=== PATIENT | female | born 1985 | race Caucasian/White ===

== ENCOUNTER 2016-05-30 23:55 | Inpatient (IN) | payer OTHER ==
[~2016-05-30 23:55] MED LIST: Z.0.NO CURRENT MEDS
[2016-05-31] VITALS (89 sets, daily range): BP systolic 81–133; BP diastolic 48–92; PULSE 59–115; RESP 16–19; TEMP 97.7–98.7; O2SAT 97
[2016-05-31] MEDS ORDERED: LACTATED RINGER'S 1000 ML INJ 1,000 ML IV SCH (00:14)
[2016-05-31] MEDS ORDERED: LACTATED RINGER'S 1000 ML INJ 1,000 ML IV PRN (00:14)
[2016-05-31] MEDS ORDERED: LIDOCAINE HCL 1% 50 ML VIAL INFIL PRN (00:15)
[2016-05-31] MEDS ORDERED: SODIUM CHLORID 0.9% 500 ML INJ 500 ML IV PRN (00:15)
[2016-05-31] MEDS ORDERED: OXYTOCIN 30 UNITS-500ML PREMIX 500 ML IV ONE (00:15)
[2016-05-31] MEDS ORDERED: CITRIC ACID-SODIUM CITRATE LIQ 30 ML UDC PO SCH (00:15)
[2016-05-31] MEDS ORDERED: MINERAL OIL 10 ML VIAL TOPICAL PRN (00:15)
[2016-05-31] MEDS ORDERED: LIDOCAINE HCL 1% 50 ML VIAL I-DERMAL PRN (00:15)
[2016-05-31] MEDS ORDERED: SODIUM CHLOR 0.9% 1000 ML INJ 1,000 ML IV PRN (00:34)
--- NOTE | 2016-05-31 00:38 | HHI.HP ---
HPI Chief Complaint labor and SROM Date Seen: May 31, 2016 Time Seen: 00:15 Travel History International Travel<30 Days: No Contact w/Intl Traveler<30Days: No Known Affected Area: No History of Present Illness HPI 30 yo 22:30 SROM and contractions Q4 min History Past Medical History Medical History: Denies Significant Hx Past Surgical History Surgical History: No Previous Surgery Family History Family History: Negative Social History Alcohol Use: No Tobacco Use: No Substance Abuse: No Allergies-Medications (Allergen,Severity, Reaction): Coded Allergies: No Known Allergies (Verified , 12/13/09) Home Meds Reported Medications Miscellaneous (No Current Meds) [facility] Review of Systems Except as stated in HPI: all other systems reviewed are Neg Physical Exam Narrative GENERAL: Well-nourished, well-developed patient. SKIN: Warm and dry. HEAD: Normocephalic and atraumatic. EYES: No scleral icterus. No injection or drainage. ENT: No nasal drainage noted. Mucous membranes pink. Airway patent. NECK: Supple, trachea midline. No JVD. CARDIOVASCULAR: Regular rate and rhythm without murmurs, gallops, or rubs. RESPIRATORY: Breath sounds equal bilaterally. No accessory muscle use. BREASTS: Bilateral exam showed no masses , no retractions, no nipple discharge. ABDOMEN/GI: Abdomen soft, non-tender, bowel sounds present, no rebound, no guarding Gravid to [-] weeks size Fundal Height: [-] GENITOURINARY: External Genitalia: intact and normal in appearance BUS glands: [-] Cervix: [-] Dilatation: [-] Effacement: [-] Station: [-] Presentation: [-] Membranes: [intact or ruptured] Uterine Contractions: [-] FHT's: Category: [-] Baseline: [-] Reactive: [-] Variability: [-] Decels: [-] EXTREMITIES: No cyanosis or edema. BACK: Nontender without obvious deformity. No CVA tenderness. NEUROLOGICAL: Awake and alert. Motor and sensory grossly within normal limits. Five out of 5 muscle strength in all muscle groups. Normal speech. Data Data Vital Signs Reviewed: Yes Orders Ob (2e) Additional Admit Info (05/31/16 00:20) Admit To Inpatient (4/13/17 ) Code Status (05/31/16 00:14) Vital Signs (Adult) .Per protocol (05/31/16 00:14) Heart (05/31/16 00:14) Amnioinfusion (05/31/16 00:14) Urinary Catheter Management .ONCE (05/31/16 00:14) Diet Liquid (05/31/16 Breakfast) Lactated Ringer's 1000 Ml Inj (Lr 1000 M (05/31/16 00:14) Lactated Ringer's 1000 Ml Inj (Lr 1000 M (05/31/16 00:14) Sodium Chlorid 0.9% 500 Ml Inj (Ns 500 M (05/31/16 00:15) Sodium Chlor 0.9% 1000 Ml Inj (Ns 1000 M (05/31/16 00:34) Lidocaine 1% Inj (50 Ml) (Xylocaine 1% I (05/31/16 00:15) Citric Acid-Sodium Citrate Liq (Bicitra (05/31/16 00:15) Fentanyl Inj (Fentanyl Inj) (05/31/16 00:15) Fentanyl Inj (Fentanyl Inj) (05/31/16 00:15) Complete Blood Count With Diff (05/31/16 00:14) Hold Clot (05/31/16 00:14) Abo/Rh Blood Type (05/31/16 00:14) Urinalysis - C+S If Indicated (05/31/16 00:14) Resp Oxygen Non Rebreathe Mask (05/31/16 ) ^ Epidural / Intrathecal Infus (05/31/16 00:14) Oxytocin 30 Units-500ml Premix (Pitocin (05/31/16 00:15) Lidocaine 1% Inj (50 Ml) (Xylocaine 1% I (05/31/16 00:15) Light Mineral Oil (Muri-Lube Oil) (05/31/16 00:15) Inpatient Certification (05/31/16 ) Assessment/Plan Problem List: (1) 38 weeks gestation of Assessment and Plan active labor with ruptured membranes Marcos Patel MD May 31, 2016 00:38
[2016-05-31 01:10] LABS: BLOOD, URINE SMALL (NEG); COMMENT (UR) CULT NOT INDICATED; CULTURE IF INDICATED CULT NOT INDICATED; GLUCOSE,URINE NEG (NEG); KETONE, URINE NEG (NEG); MUCUS URINE FEW /lpf (OCC); NITRITE,URINE NEG (NEG); SQUAMOUS EPITHELIAL CELL URINE 1 /hpf (0-5); URINE COLOR YELLOW (YELLW/STRAW)
[2016-05-31 01:21] LABS: AUTOMATED NEUTROPHIL # 9.2 TH/MM3 (1.8-7.7); BASOPHIL # 0.1 TH/MM3 (0-0.2); BASOPHIL % 0.5 % (0.0-2.0); EOSINOPHIL % 0.4 % (0.0-4.0); HEMO FLAGS DIFF FINAL; LYMPH % 15.3 % (9.0-44.0); LYMPHOCYTE # 1.8 TH/MM3 (1.0-4.8); MEAN CORPUSCULAR HEMOGLOBIN 28.1 PG (27.0-34.0); MEAN CORPUSCULAR HGB CONC 34.7 % (32.0-36.0); NEUT % 77.8 % (16.0-70.0); PLATELET COUNT 215 TH/MM3 (150-450); RED BLOOD COUNT 4.44 MIL/MM3 (4.00-5.30); RED CELL DISTRIBUTION WIDTH 14.2 % (11.6-17.2); WHITE BLOOD COUNT 11.8 TH/MM3 (4.0-11.0)
[2016-05-31] MEDS ORDERED: ONDANSETRON HCL 4 MG/2 ML VIAL ONE (01:35)
[2016-05-31] MEDS ORDERED: fentaNYL 2MCG-BUPIV 0.125% INJ 100 ML ONE ×2 (01:44→08:08)
[2016-05-31] MEDS ORDERED: OXYTOCIN 30 UNITS-500ML PREMIX 500 ML IV SCH (04:30)
[2016-05-31] MEDS ORDERED: ePHEDrine/NS 25 MG/5 ML SYR IV PRN (09:00)
[2016-05-31] MEDS ORDERED: fentaNYL 2MCG-BUPIV 0.125% 100 ML EPIDURAL SCH (09:00)
[2016-05-31] MEDS ORDERED: NO SYSTEM NARCOTICS PRN (09:00)
[2016-05-31] MEDS ORDERED: DO NOT ADMINISTER ANTICOAGULANTS PRN (09:00)
[2016-05-31] MEDS ORDERED: ONDANSETRON ODT 4 MG TAB PO PRN (09:15)
[2016-05-31] MEDS ORDERED: SODIUM CHLORIDE 0.9% FLUSH 10 ML FLUSH IV FLUSH PRN (09:15)
[2016-05-31] MEDS ORDERED: oxyCODONE/ACETAMINOPHEN 5 MG/325 MG TAB PO PRN ×2 (09:15)
[2016-05-31] MEDS ORDERED: WITCH HAZEL 50%/GLYCERIN 12.5% 40 PAD JAR TOPICAL PRN (09:15)
[2016-05-31] MEDS ORDERED: ZOLPIDEM TARTRATE 5 MG TAB PO PRN (09:15)
[2016-05-31] MEDS ORDERED: ALUMINUM/MAGNESIUM/SIMETH 30 ML CUP PO PRN (09:15)
[2016-05-31] MEDS ORDERED: BENZOCAINE 20% TOPICAL SPRAY 60 ML CAN TOPICAL PRN (09:15)
[2016-05-31] MEDS ORDERED: ACETAMINOPHEN 325 MG TAB PO PRN (09:15)
[2016-05-31] MEDS ORDERED: DOCUSATE SODIUM 50 MG/SENNA 8.6 MG TAB PO PRN (09:15)
--- NOTE | 2016-05-31 09:19 | PD.OB.DELI ---
Delivery Date: May 31, 2016 Anesthesia: Epidural Episiotomy: Midline Vaginal Delivery: Normal, Spontaneous Presentation: Occiput anterior, Vertex Nuchal Cord: x1 Delayed cord clamping (45 sec): Yes Infant: Male, Single One Minute : 7 Five Minute : 8 Weight: 7-2 Placenta: Spontaneous delivery, Intact, 3 vessel cord Laceration: Episiotomy, 2 deg Repair: Chromic interrupted, Chromic running Zonia Bowman MD May 31, 2016 09:19
[2016-05-31] MEDS ORDERED: MEASLES, MUMPS, RUBELLA VACCINE 0.5 ML VIAL SQ ONE (16:00)
[2016-05-31] MEDS ORDERED: DIPHTH/TETANUS/ACEL PERTUSSIS (BOOSTER) 0.5 ML VIAL/PFS IM ONE (16:00)
[2016-05-31] MEDS: IBUPROFEN 600 MG TAB PO PRN (17:17)
[2016-05-31] MEDS ORDERED: SODIUM CHLORIDE 0.9% FLUSH 10 ML FLUSH IV FLUSH SCH (21:00)
[2016-06-01 08:00] VITALS: BP 107/68; PULSE 65; RESP 17; TEMP 97.8
[2016-06-01] MEDS: IBUPROFEN 600 MG TAB PO PRN ×2 (09:35→22:54)
--- NOTE | 2016-06-01 12:35 | HHI.OB ---
Subjective Post Day: 1 Remarks Pt doing well Objective Vitals/I&O Vital Signs Date Time Temp Pulse Resp B/P Pulse Ox O2 Delivery O2 Flow Rate FiO2 06/01/16 11:16 18 06/01/16 08:00 107/68 06/01/16 08:00 97.8 65 17 05/31/16 21:00 97.8 86 18 113/72 05/31/16 19:48 97.8 86 16 113/72 97 05/31/16 16:55 97.7 73 18 113/69 Objective Remarks GENERAL: Well-nourished, well-developed patient. CARDIOVASCULAR: Regular rate and rhythm without murmurs, gallops, or rubs. RESPIRATORY: Breath sounds equal bilaterally. No accessory muscle use. ABDOMEN/GI: Abdomen soft, non-tender. Fundus: Firm, non-tender at umbilicus. GENITOURINARY: Light to moderate bleeding. EXTREMITIES: No cyanosis or edema, non-tender, without signs of DVT. Medications and IVs Current Medications Medications (Trade) Dose Ordered Sig/Justine Route Start Time Stop Time Status Last Admin Lactated Ringer's 1,000 ml @ 125 mls/hr Q8H IV 05/31/16 00:14 Lactated Ringer's 1,000 ml @ 3,000 mls/hr Q20M PRN IV 05/31/16 00:14 Sodium Chloride 500 ml @ 1,000 mls/hr ONCE PRN IV 05/31/16 00:15 (NS 1000 ml Inj) 1,000 ml @ 100 mls/hr Q10H PRN IV 05/31/16 00:34 (fentaNYL INJ) 50 mcg Q1H PRN IV PUSH 05/31/16 00:15 (fentaNYL INJ) 100 mcg Q1H PRN IV PUSH 05/31/16 00:15 Mineral Oil 10 ml 10 ml UNSCH PRN TOPICAL 05/31/16 00:15 Oxytocin 500 ml @ 0 mls/hr TITRATE IV 05/31/16 04:30 05/31/16 08:29 (fentaNYL 2MCG-BUPIV 0.125% INJ) 100 ml @ 0 mls/hr TITRATE EPIDURAL 05/31/16 09:00 (NS Flush) 2 ml BID IV FLUSH 05/31/16 21:00 (NS Flush) 2 ml UNSCH PRN IV FLUSH 05/31/16 09:15 (Tylenol) 650 mg Q4H PRN PO 05/31/16 09:15 (Motrin) 600 mg Q6H PRN PO 05/31/16 09:15 06/01/16 09:35 (Percocet 5-325 Mg) 1 tab Q4H PRN PO 05/31/16 09:15 (Percocet 5-325 Mg) 2 tab Q4H PRN PO 05/31/16 09:15 (Americaine 20% Top Spr) 1 spray Q4H PRN TOPICAL 05/31/16 09:15 (Tucks Pads) 1 applic QID PRN TOPICAL 05/31/16 09:15 (Sylvia-Colace) 2 tab Q12H PRN PO 05/31/16 09:15 (Ambien) 5 mg HS PRN PO 05/31/16 09:15 (Mag-Al Plus Susp Liq) 15 ml Q8H PRN PO 05/31/16 09:15 (Zofran Odt) 4 mg Q6H PRN PO 05/31/16 09:15 Assessment/Plan Problem List: (1) 38 weeks gestation of Assessment and Plan active labor with ruptured membranes Discharge Planning PPD #1 s/p doing well, plan for discharge tomorrow Zonia Bowman MD Jun 01, 2016 12:35
[2016-06-01 20:00] VITALS: BP 121/77; PULSE 68; RESP 18; TEMP 98
[2016-06-02 08:20] VITALS: BP 120/73; PULSE 62; RESP 20; TEMP 98.1
[2016-06-02] MEDS: IBUPROFEN 600 MG TAB PO PRN ×2 (08:20→14:39)
[2016-06-02] MEDS ORDERED: OXYC1TAB63 PO (11:09)
--- NOTE | 2016-06-02 11:10 | HHI.DCPOC ---
Discharge Care Plan Your Health Problems Are: Vaginal delivery Report Symptoms to Your Doctor -Temperate above 100.5 degrees -Redness, of incision or excessive or foul smelling drainage -Unusual pain or calf pain -Increased vaginal bleeding -Painful or difficulty urinating -Feelings of extreme sadness or anxiety after 2 weeks Goals to Promote Your Health * To prevent worsening of your condition and complications * To maintain your health at the optimal level Directions to Meet Your Goals Take your medications as prescribed Follow your dietary instruction Follow activity as directed Ensure plenty of rest for recovery Drink fluids for hydration Keep your appointments as scheduled Take your immunizations and boosters as scheduled If your symptoms worsen call your PCP, if no PCP go to Urgent Care Center or Emergency Room Smoking is Dangerous to Your Health. Avoid second hand smoke Call the 24-hour crisis hotline for domestic abuse at Zonia Bowman MD Jun 02, 2016 11:10
[2016-08-02] MEDS ORDERED: KETO60IN6 IM (16:03)
[2016-08-02] MEDS ORDERED: KETO10 PO (16:10)
== END 2016-06-02 18:43 | disposition home or self-care (01) | DRG 775 ==
LOC: HOBED 23:55 → H2EA 05-31 00:21 → H1EA 05-31 11:24
PROVIDERS: ADMIT Obstetrics & Gynecology; ATTEND Obstetrics & Gynecology
PROC: 10E0XZZ Delivery of Products of Conception, External Approach (ICD-10-PCS; principal; 2016-05-31)
PROC: 0W8NXZZ Division of Female Perineum, External Approach (ICD-10-PCS; 2016-05-31)
DX: O69.81X0 Labor and delivery complicated by cord around neck, without compression, not applicable or unspecified (principal); Z37.0 Single live birth; Z3A.38 38 weeks gestation of pregnancy
CPT/HCPCS: 59025; 81001; 84112; 85025; 86900; 86901; 90715; 99285; J2405; J2590

== ENCOUNTER → 2016-10-19 | Day surgery (SDC) | payer OTHER ==
[~2016-10-19] VITALS: Ht 170.2 cm; Wt 117.5 kg
[~2016-10-19] MED LIST changes: +*ONDANSETRON 4 MG VIAL PERIprocedural Use ONLY ONE; +*PROMETHAZINE 25 MG/ML VIAL PERIprocedural use ONLY ONE; +ACETAMINOPHEN 1000 MG/100 ML VIAL IV SCH; +BUPIVACAINE/EPINEPHRINE 0.25% 50 ML VIAL ONE; +CHLORHEXIDINE GLUCONATE 2 % 1 PACK (2 CLOTHS) TOPICAL PRN; +DO NOT ADM ANY ANTICOAGULANT DRUGS PRN; +INSULIN HUMAN REGULAR 1,000 UNITS/10 ML VIAL SQ PRN; +KETO10 PO; +LACTATED RINGER'S 1000 ML IV PRN; +METOPROLOL TARTRATE 25 MG TAB PO PRN; +MIDAZOLAM HCL 2 MG/2 ML VIAL ONE; +MORPHINE SULFATE 4 MG/ML INJ IV PRN; +ONDANSETRON HCL 4 MG/2 ML VIAL IV PRN; +ONDANSETRON HCL 4 MG/2 ML VIAL IV PUSH ONE; +OXYC1TAB63 PO; +POVIDONE IODINE 5% (ANTISEPSIS KIT) 4 APPLICATIONS EACH NARE PRN; +PROPOFOL 200 MG/20 ML AMP IV ONE; +SODIUM CHLORID 0.9% 500 ML IV PRN; +SUGAMMADEX SODIUM 200 MG/2 ML VIAL IV PUSH ONE; -Z.0.NO CURRENT MEDS; +ceFAZolin 2 GM PREMIX 50 ML IV SCH; +metroNIDAZOLE 500 MG INJ 100 ML IV SCH; +oxyCODONE/ACETAMINOPHEN 5 MG/325 MG TAB PO PRN
--- NOTE | 2016-10-19 11:02 | PD.OP ---
cc: Segundo Escobar MD Operative Report Date of Surgery: Oct 19, 2016 Preoperative Diagnosis: (1) Biliary colic Postoperative Diagnosis: (1) Biliary colic Procedure: Laparoscopic cholecystectomy Anesthesia: GETA Surgeon: Segundo Escobar Artificial Pearl Maker(s): Bambi VIEYRA Operation and Findings: Complications: None apparent EBL: 5 cc Operative findings: The patient appeared to have fatty liver. The gallbladder was somewhat intrahepatic. Gallstones were present. Procedure in detail: The patient was taken to the operating room and placed in the supine position. General endotracheal anesthesia was induced. The abdomen was prepped and draped in usual sterile fashion and a surgical timeout was performed to verify correct patient procedure and site. Appropriate perioperative antibiotics were administered. Local anesthetic was injected in the skin and subcutaneous tissue superior to the umbilicus and a 5 mm incision performed. The abdomen was entered using the Optiview 5 mm trocar with direct laparoscopic visualization. The abdomen was then insufflated to 15 mmHg with CO2 gas which the patient tolerated well. Next a 12 mm port was placed in the epigastrium and two 5 mm ports in the right upper quadrant and right lateral abdomen. The patient was placed in reverse Trendelenburg position and turned slightly to the left. Attention was turned to the right upper quadrant and the dome of the gallbladder was grasped and retracted cephalad. The infundibulum was retracted laterally to expose Calot's triangle. Blunt dissection and judicious use of electrocautery was used to expose the cystic duct and the cystic artery directly entering the gallbladder. Two clips were placed proximally on each of these structures and one distally and they were transected. The gallbladder was then removed from the liver bed using electrocautery. Hemostasis was achieved. The gallbladder was then removed from the abdomen using an Endo Catch bag. The clips were in place on the cystic duct and cystic artery stumps with no bleeding or bile leakage. At this point, the abdomen was allowed to desufflate and trochars were removed. The fascia at the 12 mm port site was closed with 0 Vicryl suture using the crossbow fascial closure device. Skin was closed with subcuticular 4-0 Monocryl as well as Dermabond. The patient tolerated the procedure well and was extubated and taken to PACU in stable condition. All sponge and instrument counts were correct. Segundo Escobar MD Oct 19, 2016 11:02
[2016-10-19 15:00] VITALS: BP 125/76; PULSE 69; RESP 20; TEMP 98.3; O2SAT 100
== END | disposition home or self-care (01) ==
LOC: HSDC 08:07
PROVIDERS: ATTEND Surgery
DX: K80.10 Calculus of gallbladder with chronic cholecystitis without obstruction (principal); E28.2 Polycystic ovarian syndrome; E66.9 Obesity, unspecified; Z68.41 Body mass index [BMI] 40.0-44.9, adult
CPT/HCPCS: 00790; 47562; 88304; J0131; J0690; J2250; J2405; J2550; J3010; J7120

== ENCOUNTER → 2017-03-08 | Day surgery (SDC) | payer OTHER ==
[~2017-03-08] VITALS: Ht 170.2 cm; Wt 121.6 kg
[~2017-03-08] MED LIST changes: -*PROMETHAZINE 25 MG/ML VIAL PERIprocedural use ONLY ONE; +ACETAMINOPHEN 1000 MG/100 ML 100 ML IV ONE; -ACETAMINOPHEN 1000 MG/100 ML VIAL IV SCH; +APREPITANT 40 MG CAP ONE; -BUPIVACAINE/EPINEPHRINE 0.25% 50 ML VIAL ONE; +BUPIVACAINE/EPINEPHRINE 0.5% 50 ML VIAL ONE; +DEXAMETHASONE SOD PHOS 4 MG/ML VIAL IV ONE; +GLYCOPYRROLATE 1 MG/5 ML SYRINGE IV PUSH ONE; -INSULIN HUMAN REGULAR 1,000 UNITS/10 ML VIAL SQ PRN; -KETO10 PO; +KETOROLAC TROMETHAMINE 30 MG/ML (IVP) VIAL IV PUSH ONE; +LIDOCAINE HCL 1% PF 5 ML SYRINGE OTHER ONE; -MIDAZOLAM HCL 2 MG/2 ML VIAL ONE; -MORPHINE SULFATE 4 MG/ML INJ IV PRN; +NEOSTIGMINE 5 MG/5 ML SYRINGE IV PUSH ONE; +ONDANSETRON HCL 4 MG/2 ML VIAL IV ONE; -ONDANSETRON HCL 4 MG/2 ML VIAL IV PRN; -ONDANSETRON HCL 4 MG/2 ML VIAL IV PUSH ONE; +ONDANSETRON HCL 4 MG/2 ML VIAL IV PUSH PRN; -OXYC1TAB63 PO; +ROCURONIUM INJ 50 MG/5 ML SYRINGE IV PUSH ONE; -SUGAMMADEX SODIUM 200 MG/2 ML VIAL IV PUSH ONE; -ceFAZolin 2 GM PREMIX 50 ML IV SCH; +ePHEDrine/NS 25 MG/5 ML SYRINGE IV ONE; -metroNIDAZOLE 500 MG INJ 100 ML IV SCH; -oxyCODONE/ACETAMINOPHEN 5 MG/325 MG TAB PO PRN
--- NOTE | 2017-03-08 06:44 | MH ---
cc: SUNG DIAZ M.D. DATE OF ADMISSION 03/08/2017 HISTORY OF PRESENT ILLNESS The patient is a 31-year-old white female G3, P 1-0-2-1 who had a Phuong inserted July 13, 2016 after her delivery. She had a one-month follow-up check on that in July 2016 with ultrasound proven intrauterine device inside the uterine cavity. She presented in January of 2017 to remove the IUD because she felt that the progesterone component of it was bothering her psoriasis. Upon removing it, the IUD strings were not visible. I performed an ultrasound at that time to help assist in it, however, I could not see an IUD inside the uterus. We ordered testing at that time which revealed an ultrasound showing no IUD in the uterus. We also did a plane film of the abdomen which revealed an IUD projected over the left upper pelvis. We then also did a CT scan as recommended by radiology because of her body habitus it was hard to see everything on the plane film. The CT scan showed that IUD located in the anterior left side of the pelvis within the mesenteric fat. I discussed this with the patient and the recommendation would be to have a laparoscopic removal of the IUD and she would like to proceed with that. PAST MEDICAL HISTORY Pertinent for PCOS. REVIEW OF SYSTEMS Past surgical history is negative. MEDICATIONS None ALLERGIES None SOCIAL HISTORY No tobacco, alcohol or drug use. She works in the hospital. FAMILY HISTORY Noncontributory GYNECOLOGIC HISTORY No abnormal Pap. No STD's. OBSTETRICAL HISTORY x1, SAB times two. PHYSICAL EXAM On physical exam, her weight is 267, height 5 feet, 7, blood pressure 126/80, pulse of 70. BREASTS: Without masses, nodes or discharge. CHEST: Clear to auscultation bilaterally. CARDIAC: Regular rate and rhythm without murmur, rub or gallop. ABDOMEN: Obese, soft, nontender and nondistended. No hepatosplenomegaly. No CVA tenderness. No hernias noted. PELVIC: Normal external female genitalia without lesions. Vaginal vault without lesions. Cervix without lesions. Uterus palpates anteverted and is nontender. No adnexal masses. ASSESSMENT/PLAN On the patient include migrated intrauterine device of the Phuong type in the left anterior abdominal cavity. Plan will be for a laparoscopic removal. MD MERLIN Bonds/DJL /9:06 PM /6:26 AM
[2017-03-08 13:10] VITALS: BP 109/69; PULSE 65; RESP 16; TEMP 97.7; O2SAT 100
--- NOTE | 2017-03-12 08:21 | MP ---
cc: SUNG DIAZ M.D. DATE OF SURGERY: 03/08/2017 PREOPERATIVE DIAGNOSIS Extracorporeal Mirena IUD. POSTOPERATIVE DIAGNOSIS Extracorporeal Mirena IUD. PROCEDURE PERFORMED Diagnostic laparoscopy with removal of an IUD. OPERATING SURGEON Dr. Sung Diaz. ANESTHESIA General endotracheal. FINDINGS IN SURGERY Included an intact Mirena IUD located in the omentum on the left side. No other lesions. No other findings. COMPLICATIONS None. BLOOD LOSS None. PROCEDURE IN DETAIL After proper consents were obtained, the patient was taken to the operating room where general endotracheal anesthesia was applied. She was then placed in dorsal position, sterilely prepped and draped and a Hoffman catheter was placed. At this time we put some lidocaine with epinephrine in the umbilicus. We placed a 5-mm incision in the umbilicus and placed the long 5 mm trocar into the abdominopelvic cavity without difficulty. We insufflated to an adequate level of pneumoperitoneum. In Trendelenburg we really were unable to visualize the IUD, we thought maybe it was in the anterior wall so we placed two 5 mm trocars in the right and left midaxillary lower quadrant line without difficulty. We opened that area of the anterior wall where we thought it might be, however, it proved not to be. We then went ahead and inspected the upper abdomen and we were able to find what appeared to be some type of a suture and when we grabbed onto that in the left upper quadrant it turned out to be connected to the IUD. We brought that down into the pelvis. We took it out of the omentum and then pulled it up through the 5-mm trocar without difficulty, it was intact. We then desufflated the abdomen, removed our instruments, closed the incisions using 4-0 Monocryl in a subcu fashion. Counts were correct and the patient was stable to the recovery room. MD MERLIN Bonds/TLL /4:55 PM /8:09 AM
== END | disposition home or self-care (01) ==
LOC: HSDC 08:09
PROVIDERS: ATTEND Obstetrics & Gynecology
DX: Z30.432 Encounter for removal of intrauterine contraceptive device (principal)
CPT/HCPCS: 00840; 49329; 84703; J0131; J1100; J1885; J2405; J2710; J3010; J8501